=== PATIENT | female | born 1955 | race Caucasian/White ===

== ENCOUNTER → 2017-02-16 | Outpatient (CLI) | payer BC ==
[2017-02-16 16:47] LABS: Anion Gap 9 mmol/L; Blood Urea Nitrogen 15 mg/dL (7-17); Carbon Dioxide 28 mmol/L (22-30); Chloride 102 mmol/L (98-107); Non-African American GFR(MDRD) >60 (>60 ml/min/1.73 sqM); Potassium 4.9 mmol/L (3.5-5.1); Sodium 139 mmol/L (137-145)
[2017-02-16 16:50] LABS: Basophils % (A) 1 %; CH 30.5; CHCM 32.9; Eosinophils # (A) 0.2 k/uL (0-0.7); Eosinophils % (A) 2 %; HCT 39.7 % (34.0-46.0); HDW 2.18; HGB 13.2 gm/dL (11.4-16.0); Luc # (Auto) 0.13; Luc % (Auto) 2; Lymphocytes # (A) 2.1 k/uL (1.0-4.8); Lymphocytes % (A) 26 %; MCH 30.9 pg (25.0-35.0); MCHC 33.2 g/dL (31.0-37.0); Mean Platelet Volume 6.9; Monocytes # (A) 0.4 k/uL (0-1.0); Monocytes % (A) 5 %; Neutrophils # (A) 5.3 k/uL (1.3-7.7); Neutrophils % (A) 65 %; RBC 4.26 m/uL (3.80-5.40); RDW 12.9 % (11.5-15.5); WBC 8.2 k/uL (3.8-10.6); WBC (Perox) 8.45
== END | disposition home or self-care (01) ==
LOC: LABPAT 16:02
PROVIDERS: ATTEND Obstetrics & Gynecology Obstetrics
DX: Z01.812 Encounter for preprocedural laboratory examination (principal); N81.4 Uterovaginal prolapse, unspecified
CPT/HCPCS: 80051; 82565; 84520; 85025; 86850; 86900; 86901; 87086

== ENCOUNTER 2017-02-26 05:57 | Observation (INO) | payer BC, OTHER ==
[2017-02-22 13:21] VITALS: BMI 37.4
[~2017-02-26 05:57] MED LIST: ACETAMINOPHEN IV (For NPO) 1,000 MG in EMPTY BAG 1 BAG IVPB ONE; DEXAMETHASONE SOD PHOSPHATE 10 MG/ML 1 ML VIAL IV ONE; HYDROmorphone 1 MG/ML 1 ML SYRINGE IVP PRN; ONDANSETRON 4 MG/2 ML VIAL IVP ONE; ceFAZolin 2 GM in SODIUM CHLORIDE 0.9% 100 ML IVPB ONE
[2017-02-26] MEDS: LACTATED RINGERS 1,000 ML IV SCH ×3 (06:50→22:28)
[2017-02-26] MEDS ORDERED: ROCURONIUM BROMIDE 10 MG/ML 10 ML VIAL IV ONE (07:27)
[2017-02-26] MEDS ORDERED: GLYCOPYRROLATE 0.2 MG/ML 2 ML VIAL ONE (07:27)
[2017-02-26] MEDS ORDERED: NEOSTIGMINE 1 MG/ML 10 ML VIAL ONE (07:27)
[2017-02-26] MEDS ORDERED: PROPOFOL 10 MG/ML 20 ML VIAL IV ONE (07:27)
[2017-02-26] MEDS ORDERED: MIDAZOLAM 2 MG/2 ML VIAL ONE (07:27)
[2017-02-26] MEDS ORDERED: fentaNYL (PF) 50 MCG/ML 2 ML AMP ONE (07:27)
[2017-02-26] MEDS ORDERED: KETOROLAC 30 MG/ML 1 ML VIAL ONE (07:27)
[2017-02-26] MEDS ORDERED: LIDOCAINE 1% INJ 10MG/ML (20 ML MDV) ONE (07:27)
[2017-02-26] MEDS ORDERED: ePHEDrine SULFATE/0.9% NACL/PF 50 MG/5 ML SYRINGE IV ONE (07:27)
[2017-02-26] MEDS ORDERED: SUCCINYLCHOLINE CHLORIDE 100 MG/5 ML SYR IV ONE (07:27)
[2017-02-26] MEDS ORDERED: HYDROmorphone (PF) 1 MG/ML ONE (07:27)
[2017-02-26] MEDS ORDERED: LIDOCAINE 1% INJ 10MG/ML (20 ML MDV) SQ ONE ×3 (08:02→09:10)
[2017-02-26] MEDS: ESTROGENS, CONJUGATED 0.625 MG/GM VAGINAL CREAM 42.5 GM TUBE VAGINAL SCH (09:03)
[2017-02-26] MEDS ORDERED: LACTATED RINGERS 1,000 ML IV ONE (09:15)
--- NOTE | 2017-02-26 09:35 | P.OP ---
Date of Procedure: 02/26/17 Preoperative Diagnosis: Uterine prolapse Postoperative Diagnosis: Same Procedure(s) Performed: Robotic-assisted vaginal hysterectomy, bilateral salpingo-oophorectomy, diagnostic cystoscopy Implants: Anesthesia: JUANAA Surgeon: America Weaver [employer] Operation Manager #1: Shahida Faustin Estimated Blood Loss (ml): 10 IV fluids (ml): 800 Urine output (ml): 500 Condition: stable Disposition: PACU Indications for Procedure: This is a 61-year-old the presented with complaints of uterine prolapse. She noted a bulge pelvic discomfort and difficulty with intercourse. The skull exam uterine prolapse was noted no adnexal masses the uterus was small and mobile Operative Findings: Uterus tubes and ovaries Description of Procedure: pt taken to the operating room after informed consent was obtained Risks were reviewed in detail including but not limited to infection bleeding damage bladder bowel ureteric injury patient signed consent and was taken back to the operating room. Gen. anesthesia was obtained by the anesthesia department. She was then prepped and draped in normal sterile fashion in dorsal lithotomy position. A weighted speculum was placed in the posterior vaginal vault and a Adames catheter was placed under sterile technique. The cervix was then grasped and endocervical canal was then dilated and V care uterine if there is advanced into the uterine cavity as a means to miniplate the uterus during the procedure. attention was turned to the patient's abdomen where approximately 2 finger breaths above the umbilicus a small skin incisions made. Through this incision the Veress needles placed. Once the Veress needle seemed to be in the appropriate position with a drop in CO2 pressure with insufflation of CO2 gas CO2 insufflation was allowed to occur. The incision was then extended to 12 mm and a 12 mm trocar and sleeve with the laparoscope and placed placed through the skin incision toward the pneumoperitoneum. inspection of the pelvis revealed an entirely normal anatomy. additional port sites were then placed in the usual fashion at 10 cm lateral and 3 cm inferior to the midline port. These are 8 mm ports and placed under direct visualization. In the left upper quadrant 12 mm trocar and sleeve is placed under direct visualization. At this time the da Andria robot was docked in usual fashion. The infants were placed in the right operative arm the monopolar scissors the left operative arm the bipolar forceps was placed. Attention was then turned to the patient's left infundibulopelvic ligament was grasped and coagulated 2 and transected hemostasis was noted this continued through the broad toward the round which was coagulated and transected with good hemostasis. The round ligament was then grasped, ligated and transected with good hemostasis the bladder flap wasn' t created using sharp and blunt dissection. Turned the Patient's Right Internipple Pelvis Ligament. This Was Grasped Regulated and Transected with Good Hemostasis Continued through the Broad toward the Round Which Was Coagulated Transected with Hemostasis. The Bladder Flap from the Right Was Created Using Sharp and Blunt Dissection. The Descending Branch of the Uterine Artery from the Right Was Coagulated and Transected. Attention Was Noted the Patient's Left Uterine Uterine Artery It Was Visualized Coagulated and Hemostasis Was Noted. A Ray-Trisha Was Then Placed into the Abdomen and the Bladder Was Placed Further from the Operating Field. At This Point There Were Moderately the Only Remaining Attachment Was the Vaginal Attachment Therefore a Colpotomy Incision Was Made in a Circumferential Fashion Hemostasis Was Noted the Uterus Tubes and Ovaries Were Delivered through the Vaginal Opening. The Vaginal Cuff Was Then Closed with 0 Vicryl in [id number] Suture. Hemostasis Was Noted at This Point.the Vaginal Cuff Was Inspected Hemostasis Was Appreciated. the Pelvis Was Copiously Irrigated and All instruments were Removed from the Patient's Abdomen. A Adames Catheter Was Removed and Cystoscopy Was Performed. Cystoscope Was Placed through the Urethra, the Bladder Bladder Bubble Is Noted, ureteral Orifices Were Noted to Be Spilling Clear Yellow Urine. Cystoscopy Fluid along with the Cystoscope Was Removed. The Adames Catheter Was Replaced. The Skin Incisions Were Closed with 4-0 Vicryl in a Subcuticular Fashion. Steri-Strips and Sterile Dressings Were Applied As Needed. All Counts Were Correct 2 Patient Tolerated Procedure Well and Was Taken Recovery Room Awake and Stable Condition
[2017-02-26] MEDS ORDERED: SIMETHICONE 80 MG CHEWABLE PO PRN (12:03)
[2017-02-26] MEDS ORDERED: IBUPROFEN 600 MG TAB PO PRN (12:03)
[2017-02-26] MEDS ORDERED: SENNOSIDES-DOCUSATE SODIUM 1 EACH TAB PO PRN (12:03)
[2017-02-26] MEDS ORDERED: ONDANSETRON 4 MG/2 ML VIAL IVP PRN (12:03)
[2017-02-26] MEDS: Acetaminophen-Codeine 300-30mg TAB PO PRN ×3 (17:35→22:27)
[2017-02-27] MEDS: Acetaminophen-Codeine 300-30mg TAB PO PRN ×2 (06:13→10:35)
[2017-02-27] MEDS: LACTATED RINGERS 1,000 ML IV SCH (06:35)
[2017-02-27] MEDS ORDERED: PANTOPRAZOLE 40 MG TABLET PO SCH (07:30)
--- NOTE | 2017-02-27 08:10 | P.PN ---
Subjective Principal diagnosis: Postop day 1 status post robotic assist vaginal hysterectomy, I lateral salpingo -oophorectomy, diagnostic cystoscopy Inna is doing well postoperatively. She is ambulatory without difficulty. She had 2300 mL of clear yellow urine in her Adames catheter overnight. She has yet to void this morning as her Adames was just DC'd at 6 AM She is tolerating a regular diet without nausea or vomiting. And she states her pain is well controlled. Objective - Vital Signs Vital signs: Vital Signs Temp 98.3 F 02/27/17 06:00 Pulse 64 02/27/17 06:00 Resp 20 02/27/17 06:00 BP 119/69 02/27/17 06:00 Pulse Ox 97 02/27/17 06:00 Intake & Output 02/26/17 02/27/17 02/27/17 18:59 06:59 18:59 Intake Total 1750 Output Total 810 500 Balance 940 -500 Weight 98.883 kg Intake: IV 1750 Output: Urine 800 500 Estimated Blood Loss 10 Other: Voiding Method Indwelling Catheter Indwelling Catheter - Respiratory Respiratory: bilateral: CTA - Gastrointestinal Gastrointestinal Comment(s): Incisions, bandages clean dry and intact General gastrointestinal: Present: normal bowel sounds. Absent: tenderness Assessment and Plan (1) Status post hysterectomy with oophorectomy Narrative/Plan: Patient is doing well postoperatively. We will plan discharge this morning. Postop instructions were discussed with the patient this morning. She will call the office for a follow-up appointment in 1-2 weeks. Status: Acute Time with Patient: Less than 30
--- NOTE | 2017-02-27 08:13 | P.DS ---
Providers Date of admission: 02/26/17 20:41 Expected date of discharge: 02/27/17 Attending physician: America Weaver Primary care physician: Denilson Shearer - Discharge Diagnosis(es) (1) Status post hysterectomy with oophorectomy Inna was admitted yesterday on 814 for robotic-assisted vaginal hysterectomy with bilateral salpingo-vitrectomy. Procedure went well for further details surgery please see the operative report. She is ambulating and voiding without difficulty on postop day #1. Her pain is well controlled. She is tolerating a regular diet with out nausea or vomiting. And wishes to be discharged home. Current Visit: Yes Status: Acute Patient Condition at Discharge: Good Plan - Discharge Summary New Discharge Prescriptions: No Action Atenolol [Tenormin] 25 mg PO QAM Aspirin 81 mg PO DAILY Pravastatin Sodium [Pravachol] 40 mg PO DAILY Omeprazole 20 mg PO QAM Discharge Medication List Aspirin 81 mg PO DAILY 02/22/17 [History] Atenolol [Tenormin] 25 mg PO QAM 02/22/17 [History] Omeprazole 20 mg PO QAM 02/22/17 [History] Pravastatin Sodium [Pravachol] 40 mg PO DAILY 02/22/17 [History] Follow up Appointment(s)/Referral(s): America Weaver DO [Doctor of Osteopathic Medicine] - 1 Week Discharge Disposition: HOME SELF-CARE
[2017-02-27] MEDS ORDERED: PNEUMOCOCCAL VACC-PNEUMOVAX 23 25 MCG/0.5 ML VIAL IM ONE (09:00)
[2017-02-27] MEDS ORDERED: PRAVASTATIN SODIUM 40 MG TAB PO SCH (09:00)
[2017-02-27 09:01] VITALS: BP 97/74; PULSE 80; RESP 14; TEMP 98.9
[2017-02-27] MEDS: ESTROGENS, CONJUGATED 0.625 MG/GM VAGINAL CREAM 42.5 GM TUBE VAGINAL SCH (10:33)
[2017-02-27 11:12] LABS: Basophils % (A) 0 %; CH 30.3; CHCM 32.7; Eosinophils % (A) 0 %; HCT 36.1 % (34.0-46.0); HDW 2.18; HGB 11.8 gm/dL (11.4-16.0); Luc # (Auto) 0.11; Luc % (Auto) 1; Lymphocytes # (A) 1.6 k/uL (1.0-4.8); Lymphocytes % (A) 15 %; MCH 30.4 pg (25.0-35.0); MCHC 32.7 g/dL (31.0-37.0); Mean Platelet Volume 7.1; Monocytes # (A) 0.4 k/uL (0-1.0); Monocytes % (A) 4 %; Neutrophils # (A) 8.8 k/uL (1.3-7.7); Neutrophils % (A) 80 %; RBC 3.89 m/uL (3.80-5.40); WBC (Perox) 11.25
== END 2017-02-27 10:58 | disposition home or self-care (01) ==
LOC: OR 05:57 → 6PED 09:19 → OR 20:41
PROVIDERS: ADMIT Obstetrics & Gynecology Obstetrics; ATTEND Obstetrics & Gynecology Obstetrics
DX: N81.4 Uterovaginal prolapse, unspecified (principal); I10 Essential (primary) hypertension; E78.5 Hyperlipidemia, unspecified; K21.9 Gastro-esophageal reflux disease without esophagitis; Z79.82 Long term (current) use of aspirin; Z79.899 Other long term (current) drug therapy; Z88.0 Allergy status to penicillin; Z85.828 Personal history of other malignant neoplasm of skin; Z80.3 Family history of malignant neoplasm of breast; Z23 Encounter for immunization
CPT/HCPCS: 52000; 58552; S2900; 85025; 86850; 86900; 86901; 88305; 88307; 90732

== ENCOUNTER 2021-05-11 10:40 | Emergency (ER) | payer BC, MEDICARE ==
[2021-05-11] MEDS ORDERED: SODIUM CHLORIDE 0.9% 500 ML 500 ML IV STA (12:28)
[2021-05-11 12:39] LABS: Appearance,Urine Clear (Clear); Bilirubin,Urine Negative (Negative); Blood,Urine Negative (Negative); Color,Urine Light Yellow; Glucose,Urine (UA) Negative (Negative); Ketones,Urine Negative (Negative); Leukocyte Esterase,Urine Negative (Negative); Nitrite,Urine Negative (Negative); PH, Urine 6.5 (5.0-8.0); Protein,Urine Negative (Negative); Specific Gravity,Urine 1.008 (1.001-1.035); Urobilinogen,Urine <2.0 mg/dL (<2.0)
--- NOTE | 2021-05-11 12:41 | ED ---
General Adult HPI - General Chief complaint: Abdominal Pain Stated complaint: Abd pain Time Seen by Provider: 05/11/21 12:15 Source: patient, RN notes reviewed, old records reviewed Mode of arrival: ambulatory Limitations: no limitations - History of Present Illness Initial comments: 65-year-old female presenting for evaluation of lower abdominal pain. Pain began as a sharp pain in the left lower quadrant. This did move to the right side. She states she had normal bowel movement yesterday. She has no previous history of kidney stones. She does have a previous history of diverticulitis. There's been no vomiting. No diarrhea. No fever. Pain is currently on both sides of the lower abdomen. No dysuria or hematuria. - Related Data Home Medications Medication Instructions Recorded Confirmed Aspirin 81 mg PO DAILY 02/22/17 02/26/17 Omeprazole 20 mg PO QAM 02/22/17 02/26/17 Pravastatin Sodium [Pravachol] 40 mg PO DAILY 02/22/17 02/26/17 atenoloL [Tenormin] 25 mg PO QAM 02/22/17 02/26/17 Previous Rx's Medication Instructions Recorded Sulfamethox-Tmp 800-160Mg [Bactrim 1 tab PO Q12HR #28 tab 05/11/21 DS 800-160 mg] metroNIDAZOLE [Flagyl] 500 mg PO TID 10 Days #30 tab 05/11/21 Allergies Allergy/AdvReac Type Severity Reaction Status Date / Time Penicillins Allergy Rash/Hives Verified 05/11/21 11:25 Review of Systems ROS Statement: Those systems with pertinent positive or pertinent negative responses have been documented in the HPI. ROS Other: All systems not noted in ROS Statement are negative. Past Medical History Past Medical History: Cancer, GERD/Reflux, Hyperlipidemia, Hypertension Additional Past Medical History / Comment(s): uterine prolapse, hx fatty liver,skin ca 2004 to nose History of Any Multi-Drug Resistant Organisms: None Reported Past Surgical History: Tonsillectomy Additional Past Surgical History / Comment(s): Moh's Proc to nose,lt arm surgery Past Anesthesia/Blood Transfusion Reactions: No Reported Reaction Additional Past Anesthesia/Blood Transfusion Reaction / Comment(s): no hx blood transfusion. Past Psychological History: No Psychological Hx Reported Smoking Status: Never smoker Past Alcohol Use History: Occasional Past Drug Use History: None Reported - Past Family History Mother Family Medical History: Cancer Additional Family Medical History / Comment(s): breast Father Family Medical History: No Reported History Sister(s) Family Medical History: Cancer Additional Family Medical History / Comment(s): 3 sisters breast CA General Exam Limitations: no limitations General appearance: alert, in no apparent distress Head exam: Present: atraumatic, normocephalic Eye exam: Present: normal appearance, PERRL ENT exam: Present: normal exam Neck exam: Present: normal inspection. Absent: tenderness, meningismus Respiratory exam: Present: normal lung sounds bilaterally. Absent: respiratory distress, wheezes Cardiovascular Exam: Present: regular rate, normal rhythm GI/Abdominal exam: Present: soft, tenderness (Bilateral lower quadrant tenderness to palpation). Absent: distended, guarding, rebound Extremities exam: Present: normal inspection, normal capillary refill. Absent: pedal edema Neurological exam: Present: alert, oriented X3, CN II-XII intact. Absent: motor sensory deficit Psychiatric exam: Present: normal affect, normal mood Skin exam: Present: warm, dry, intact. Absent: cyanosis, diaphoretic Course Vital Signs 05/11/21 05/11/21 11:26 13:12 Temperature 98 F Pulse Rate 65 65 Respiratory 18 20 Rate Blood Pressure 136/87 109/67 O2 Sat by Pulse 95 96 Oximetry Medical Decision Making - Medical Decision Making 65-year-old female who presented with lower abdominal pain. History of diverticulitis. She does have some mild tenderness on exam. She is afebrile and otherwise well-appearing. She has normal white blood cell count, stable hemoglobin, normal white lites, normal urinalysis. CT performed showing chronic acute non-complicated diverticulitis. Patient started on antibiotics., given strict return parameters. - Lab Data Result diagrams: 05/11/21 12:38 05/11/21 12:38 Lab Results 05/11/21 05/11/21 05/11/21 Range/Units 12:31 12:38 12:38 WBC 8.3 (3.8-10.6) k/uL RBC 4.42 (3.80-5.40) m/uL Hgb 13.8 (11.4-16.0) gm/dL Hct 40.5 (34.0-46.0) % MCV 91.5 (80.0-100.0) fL MCH 31.2 (25.0-35.0) pg MCHC 34.1 (31.0-37.0) g/dL RDW 13.0 (11.5-15.5) % Plt Count 268 (150-450) k/uL MPV 6.7 Neutrophils % 70 % Lymphocytes % 21 % Monocytes % 5 % Eosinophils % 2 % Basophils % 1 % Neutrophils # 5.8 (1.3-7.7) k/uL Lymphocytes # 1.7 (1.0-4.8) k/uL Monocytes # 0.4 (0-1.0) k/uL Eosinophils # 0.2 (0-0.7) k/uL Basophils # 0.1 (0-0.2) k/uL PT 9.9 (9.0-12.0) sec INR 0.9 (<1.2) APTT 22.5 (22.0-30.0) sec Sodium (137-145) mmol/L Potassium (3.5-5.1) mmol/L Chloride (98-107) mmol/L Carbon Dioxide (22-30) mmol/L Anion Gap mmol/L BUN (7-17) mg/dL Creatinine (0.52-1.04) mg/dL Est GFR (CKD-EPI)AfAm (>60 ml/min/1.73 sqM) Est GFR (CKD-EPI)NonAf (>60 ml/min/1.73 sqM) Glucose (74-99) mg/dL Plasma Lactic Acid Isiah (0.7-2.0) mmol/L Calcium (8.4-10.2) mg/dL Total Bilirubin (0.2-1.3) mg/dL AST (14-36) U/L ALT (4-34) U/L Alkaline Phosphatase (38-126) U/L Total Protein (6.3-8.2) g/dL Albumin (3.5-5.0) g/dL Amylase (30-110) U/L Lipase (23-300) U/L Urine Color Light Yellow Urine Appearance Clear (Clear) Urine pH 6.5 (5.0-8.0) Ur Specific [place] 1.008 (1.001-1.035) Urine Protein Negative (Negative) Urine Glucose (UA) Negative (Negative) Urine Ketones Negative (Negative) Urine Blood Negative (Negative) Urine Nitrite Negative (Negative) Urine Bilirubin Negative (Negative) Urine Urobilinogen <2.0 (<2.0) mg/dL Ur Leukocyte Esterase Negative (Negative) 05/11/21 05/11/21 Range/Units 12:38 12:38 WBC (3.8-10.6) k/uL RBC (3.80-5.40) m/uL Hgb (11.4-16.0) gm/dL Hct (34.0-46.0) % MCV (80.0-100.0) fL MCH (25.0-35.0) pg MCHC (31.0-37.0) g/dL RDW (11.5-15.5) % Plt Count (150-450) k/uL MPV Neutrophils % % Lymphocytes % % Monocytes % % Eosinophils % % Basophils % % Neutrophils # (1.3-7.7) k/uL Lymphocytes # (1.0-4.8) k/uL Monocytes # (0-1.0) k/uL Eosinophils # (0-0.7) k/uL Basophils # (0-0.2) k/uL PT (9.0-12.0) sec INR (<1.2) APTT (22.0-30.0) sec Sodium 136 L (137-145) mmol/L Potassium 4.1 (3.5-5.1) mmol/L Chloride 100 (98-107) mmol/L Carbon Dioxide 28 (22-30) mmol/L Anion Gap 8 mmol/L BUN 11 (7-17) mg/dL Creatinine 0.58 (0.52-1.04) mg/dL Est GFR (CKD-EPI)AfAm >90 (>60 ml/min/1.73 sqM) Est GFR (CKD-EPI)NonAf >90 (>60 ml/min/1.73 sqM) Glucose 100 H (74-99) mg/dL Plasma Lactic Acid Isiah 1.5 (0.7-2.0) mmol/L Calcium 9.4 (8.4-10.2) mg/dL Total Bilirubin 0.5 (0.2-1.3) mg/dL AST 36 (14-36) U/L ALT 45 H (4-34) U/L Alkaline Phosphatase 111 (38-126) U/L Total Protein 7.0 (6.3-8.2) g/dL Albumin 4.0 (3.5-5.0) g/dL Amylase 56 (30-110) U/L Lipase 92 (23-300) U/L Urine Color Urine Appearance (Clear) Urine pH (5.0-8.0) Ur Specific [place] (1.001-1.035) Urine Protein (Negative) Urine Glucose (UA) (Negative) Urine Ketones (Negative) Urine Blood (Negative) Urine Nitrite (Negative) Urine Bilirubin (Negative) Urine Urobilinogen (<2.0) mg/dL Ur Leukocyte Esterase (Negative) Disposition Clinical Impression: Diverticulitis Disposition: HOME SELF-CARE Condition: Good Instructions (If sedation given, give patient instructions): Diverticulitis (ED) Prescriptions: Sulfamethox-Tmp 800-160Mg [Bactrim DS 800-160 mg] 1 tab PO Q12HR #28 tab metroNIDAZOLE [Flagyl] 500 mg PO TID 10 Days #30 tab Is patient prescribed a controlled substance at d/c from ED?: No Referrals: Denilson Shearer MD [Primary Care Provider] - 1-2 days Time of Disposition: 14:09
[2021-05-11 13:00] LABS: Basophils # (A) 0.1 k/uL (0-0.2); Basophils % (A) 1 %; Eosinophils # (A) 0.2 k/uL (0-0.7); Eosinophils % (A) 2 %; HCT 40.5 % (34.0-46.0); HGB 13.8 gm/dL (11.4-16.0); Lymphocytes # (A) 1.7 k/uL (1.0-4.8); Lymphocytes % (A) 21 %; MCH 31.2 pg (25.0-35.0); MCHC 34.1 g/dL (31.0-37.0); MCV 91.5 fL (80.0-100.0); Mean Platelet Volume 6.7; Monocytes # (A) 0.4 k/uL (0-1.0); Monocytes % (A) 5 %; Neutrophils # (A) 5.8 k/uL (1.3-7.7); Neutrophils % (A) 70 %; Platelet Count 268 k/uL (150-450); RBC 4.42 m/uL (3.80-5.40); WBC 8.3 k/uL (3.8-10.6)
[2021-05-11 13:08] LABS: INR 0.9 (<1.2); Partial Thromboplastin Time 22.5 sec (22.0-30.0); Prothrombin Time 9.9 sec (9.0-12.0)
[2021-05-11 13:13] VITALS: RESP 20
[2021-05-11 13:15] LABS: ALT 45 U/L (4-34); AST 36 U/L (14-36); African American GFR (CKD) >90 (>60 ml/min/1.73 sqM); Alkaline Phosphatase 111 U/L (38-126); Amylase 56 U/L (30-110); Anion Gap 8 mmol/L; Blood Urea Nitrogen 11 mg/dL (7-17); Calcium 9.4 mg/dL (8.4-10.2); Carbon Dioxide 28 mmol/L (22-30); Chloride 100 mmol/L (98-107); Glucose 100 mg/dL (74-99); Lipase 92 U/L (23-300); Non-African American GFR(CKD) >90 (>60 ml/min/1.73 sqM); Potassium 4.1 mmol/L (3.5-5.1); Sodium 136 mmol/L (137-145); Total Bilirubin 0.5 mg/dL (0.2-1.3)
--- NOTE | 2021-05-11 14:00 | CT ---
EXAMINATION TYPE: CT abdomen pelvis w con DATE OF EXAM: 05/11/2021 COMPARISON: None HISTORY: abd pain CT DLP: 1752.5 mGycm CONTRAST: CT scan of the abdomen and pelvis is performed without Oral Contrast and with IV Contrast, patient in jected with 100 mL of Isovue 300. FINDINGS: LUNG BASES-: No visible nodule. No infiltrate. LIVER/GB: Small gallstones identified. Hepatic steatosis. No space occupying hepatic lesion. Bilia ry tree is of normal caliber. PANCREAS: No inflammation. No distinct mass. SPLEEN: No splenic enlargement. No lesion seen. ADRENALS: No nodule. No thickening. KIDNEYS/BLADDER: No hydronephrosis. No nephrolithiasis. No distinct renal mass. Urinary bladder g rossly unremarkable. BOWEL: Normal appendix. Mild wall thickening and inflammatory changes sigmoid colon with surrounding diverticula compatible with diverticulitis. No evidence of perforation or abscess. GENITAL ORGANS: Hysterectomy changes. Pessary is noted to be in place. No adnexal masses. LYMPH NODES: No greater than 1cm abdominal or pelvic lymph nodes are appreciated. AORTA: No significant abnormality. OSSEOUS STRUCTURES: No significant abnormality is seen. OTHER: No significant additional abnormality is seen. IMPRESSION: 1. Mild wall thickening and inflammatory changes sigmoid colon with surrounding diverticula compatibl e with diverticulitis. No evidence of perforation or abscess.
[2021-05-11 14:37] VITALS: BP 104/66; PULSE 64; TEMP 98
== END 2021-05-11 14:32 | disposition home or self-care (01) ==
LOC: EC 10:40 → SUPCPDRO 10:40 → EC 14:32
DX: K57.32 Diverticulitis of large intestine without perforation or abscess without bleeding (principal); I10 Essential (primary) hypertension; E78.5 Hyperlipidemia, unspecified; K21.9 Gastro-esophageal reflux disease without esophagitis; Z79.82 Long term (current) use of aspirin; Z88.0 Allergy status to penicillin; Z85.820 Personal history of malignant melanoma of skin; Z90.89 Acquired absence of other organs
CPT/HCPCS: 99284; 96360; 96361; 36415; 80053; 82150; 83605; 83690; 85025; 85610; 85730; 81003; 74177; Q9967

== ENCOUNTER → 2023-12-11 | Outpatient (CLI) | payer MEDICARE ==
[2023-12-11 15:03] LABS: African American GFR (CKD) >90 (>60 ml/min/1.73 sqM); Blood Urea Nitrogen 15 mg/dL (7-17); Non-African American GFR(CKD) >90 (>60 ml/min/1.73 sqM)
--- NOTE | 2023-12-16 15:54 | CT ---
EXAMINATION TYPE: CT abdomen pelvis w con DATE OF EXAM: 12/11/2023 COMPARISON: None INDICATION: RLQ abdominal pain x 1 year DLP: 1819 mGycm, Automated exposure control for dose reduction was used. CONTRAST: 100ml mL of Isovue 300. Study performed with Oral Contrast TECHNIQUE: Axial images were obtained from above the diaphragm to the pubic rami in the axial plane a t 5 mm thick sections. Reconstructed images are reviewed on the computer in the coronal plane. FINDINGS: Limited CT sections are obtained the lung bases. The lung bases are clear. CT ABDOMEN: Liver: There is mild fatty infiltration liver. No discrete masses are evident. Spleen: Normal Pancreas: Normal Adrenal glands: The adrenal glands are normal. Gallbladder: Normal Kidneys: No masses are evident. No hydronephrosis is present. 1.5 cm cyst superior pole left kidney . Delayed images were obtained through the kidneys, which remain unremarkable. Aorta: Vascular calcification is within the aorta. Inferior vena cava: Normal. CT PELVIS: Loops of bowel within the abdomen and pelvis are normal. There are loops of bowel which are incom pletely distended or lack oral contrast limiting their evaluation. A few scattered diverticula within the sigmoid colon. No adjacent inflammatory changes. Appendix: Normal as visualized. No adjacent inflammatory changes. No contrast within the appendix. Urinary bladder: Normal. Genitourinary structures: Uterus and ovaries not identified. Pessary is within the vagina. Osseous structures: No suspicious lytic or sclerotic lesions. Degenerative disc changes are within th e lumbar spine IMPRESSION: 1. Mild diverticulosis without acute diverticulitis. 2. Left renal cyst. 3. No suspicious changes to account for right lower quadrant pain.
== END | disposition home or self-care (01) ==
LOC: RADCTMAIN 14:29
PROVIDERS: ATTEND Family Medicine
DX: N28.1 Cyst of kidney, acquired (principal); K57.90 Diverticulosis of intestine, part unspecified, without perforation or abscess without bleeding
CPT/HCPCS: 82565; 84520; 74177; 36415; Q9967